=== PATIENT | female | born 1960 ===

== ENCOUNTER 2018-04-02 10:09 | Outpatient (CLI) | payer OTHER ==
[~2018-04-02] VITALS: Ht 175.3 cm; Wt 67.1 kg
== END 2018-04-02 18:02 | disposition home or self-care (01) ==
LOC: OFIC 805 10:09
DX: R04.0 Epistaxis (principal); J30.89 Other allergic rhinitis

== ENCOUNTER → 2020-03-11 | Outpatient (CLI) | payer OTHER | END | disposition home or self-care (01) | LOC: PPH VACUNA 09:00 | DX: Z23 Encounter for immunization (principal) ==

== ENCOUNTER 2020-06-01 12:28 | Outpatient (CLI) | payer OTHER | END 2020-06-01 15:00 | disposition home or self-care (01) | LOC: PPH VACUNA 12:28 | DX: Z23 Encounter for immunization (principal) ==

== ENCOUNTER 2020-11-11 09:09 | Outpatient (CLI) | payer OTHER | END 2020-11-11 09:23 | disposition home or self-care (01) | LOC: MAMO-SONO 09:09 | PROVIDERS: ATTEND Obstetrics & Gynecology | DX: N60.11 Diffuse cystic mastopathy of right breast (principal); Z12.31 Encounter for screening mammogram for malignant neoplasm of breast ==

== ENCOUNTER 2021-03-15 08:00 | Outpatient (CLI) | payer OTHER | END 2021-03-15 16:06 | disposition home or self-care (01) | LOC: PPH VACUNA 08:00 | PROVIDERS: ATTEND Emergency Medicine Pediatric Emergency Medicine | DX: Z23 Encounter for immunization (principal) ==

== ENCOUNTER 2021-04-29 08:00 | Outpatient (CLI) | payer OTHER | END 2021-04-29 08:30 | disposition home or self-care (01) | LOC: PPH VACUNA 08:00 | PROVIDERS: ATTEND Emergency Medicine Pediatric Emergency Medicine | DX: Z23 Encounter for immunization (principal) ==

== ENCOUNTER 2022-02-28 09:09 | Outpatient (CLI) | payer OTHER | END 2022-02-28 09:19 | disposition home or self-care (01) | LOC: PPH VACUNA 09:09 | PROVIDERS: ATTEND Emergency Medicine Pediatric Emergency Medicine | DX: Z23 Encounter for immunization (principal) ==

== ENCOUNTER 2022-08-15 08:21 | Outpatient (CLI) | payer OTHER | END 2022-08-15 09:00 | disposition home or self-care (01) | LOC: MAMO-SONO 08:21 | PROVIDERS: ATTEND Obstetrics & Gynecology | DX: Z12.31 Encounter for screening mammogram for malignant neoplasm of breast (principal) ==

== ENCOUNTER 2023-09-18 07:56 | Outpatient (CLI) | payer OTHER | END 2023-09-18 08:07 | disposition home or self-care (01) | LOC: MAMO-SONO 07:56 | PROVIDERS: ATTEND Obstetrics & Gynecology | DX: Z12.31 Encounter for screening mammogram for malignant neoplasm of breast (principal) ==

== ENCOUNTER 2024-09-25 07:56 | Outpatient (CLI) | payer OTHER | END 2024-09-25 08:00 | disposition home or self-care (01) | LOC: RAD 07:56 | PROVIDERS: ATTEND Obstetrics & Gynecology | DX: M84.471A Pathological fracture, right ankle, initial encounter for fracture (principal); S99.811A Other specified injuries of right ankle, initial encounter ==

== ENCOUNTER 2024-12-09 08:37 | Outpatient (CLI) | payer OTHER | END 2024-12-09 08:39 | disposition home or self-care (01) | LOC: MAMO-SONO 08:37 | PROVIDERS: ATTEND Radiology Diagnostic Radiology | DX: N60.11 Diffuse cystic mastopathy of right breast (principal); N60.12 Diffuse cystic mastopathy of left breast ==